=== PATIENT | female | born 1995 | race Two or more races ===

== ENCOUNTER → 2024-10-15 | Outpatient (CLI) | payer OTHER, SELFPAY ==
--- NOTE | 2024-10-15 09:42 | XR_ITS ---
Examination: Lumbar spine 3 views Technique one AP lateral coned lateral lower lumbar spine 3 views Exam date and time: October 15, 2024 0953 hours INDICATIONS: Lower back pain beginning 5 months ago. FINDINGS: Satisfactory alignment lumbar vertebral bodies Mild disc narrowing L5-S1 No spondylolisthesis IMPRESSION: Early degenerative disc disease L5-S1
== END | disposition home or self-care (01) ==
PROVIDERS: Referring Provider Nurse Practitioner Family; Visit Provider Nurse Practitioner Family
DX: M51.379 Other intervertebral disc degeneration, lumbosacral region without mention of lumbar back pain or lower extremity pain (principal)
CPT/HCPCS: 72100